=== PATIENT | female | born 1975 | race Caucasian/White ===

== ENCOUNTER 2024-05-23 09:01 | Outpatient (CLI) | payer OTHER, SELFPAY ==
--- NOTE | ~2024-05-23 | XR_ITS ---
XR chest 2V Ordering provider: JITENDRA Dennis History: 49 years Female with . J18.9 - Pneumonia, unspecified organism . Comparison: December 16, 2016 FINDINGS: MEDIASTINUM: The cardiac silhouette is not enlarged. LUNGS: No effusions or pneumothorax. Loss of silhouette of the right cardiac border which may be due to atelectasis versus pneumonia in the middle lobe. This appearance also can be due to the pectus def ormity. OTHER: Pectus excavatum . No free air under the diaphragm. IMPRESSION: Possible middle lobe atelectasis versus pneumonia. This also can be due to the pectus excavatum. Reviewed, dictated and finalized at location A.
== END 2024-05-23 09:02 | disposition home or self-care (01) ==
LOC: GOSHIMG 09:02
PROVIDERS: PCP Clinical Nurse Specialist; Visit Provider Clinical Nurse Specialist
DX: J18.9 Pneumonia, unspecified organism (principal)
CPT/HCPCS: 71046